=== PATIENT | female | born 2000 | race Caucasian/White ===

== ENCOUNTER → 2022-11-06 08:40 | Outpatient (BNVA) | payer MEDICAID, SELFPAY | PROVIDERS: Family Provider Nurse Practitioner Family; PCP Nurse Practitioner Family; Visit Provider Nurse Practitioner Women's Health | DX: Z34.81 Encounter for supervision of other normal pregnancy, first trimester (principal); Z34.90 Encounter for supervision of normal pregnancy, unspecified, unspecified trimester | CPT/HCPCS: 80307; 81000; 81025; 84315; 84443; 85027; 86592; 86762; 86803; 86850; 86900; 87086; 87340; 87491; 87591; 87806 ==

== ENCOUNTER → 2022-11-18 11:35 | Outpatient (BNVA) | payer MEDICAID, SELFPAY | PROVIDERS: Family Provider Nurse Practitioner Family; PCP Nurse Practitioner Family; Visit Provider Obstetrics & Gynecology | DX: Z34.90 Encounter for supervision of normal pregnancy, unspecified, unspecified trimester (principal); Z34.81 Encounter for supervision of other normal pregnancy, first trimester; F41.9 Anxiety disorder, unspecified; F32.A Depression, unspecified | CPT/HCPCS: 84315; 87491; 87591; 87661; 88175 ==

== ENCOUNTER → 2022-12-19 10:49 | Outpatient (BNVA) | payer MEDICAID, SELFPAY | PROVIDERS: Family Provider Nurse Practitioner Family; PCP Nurse Practitioner Family; Visit Provider Obstetrics & Gynecology | DX: Z34.90 Encounter for supervision of normal pregnancy, unspecified, unspecified trimester (principal); R82.90 Unspecified abnormal findings in urine | CPT/HCPCS: 84315; 87086 ==

== ENCOUNTER → 2023-01-31 08:18 | Outpatient (BNVA) | payer MEDICAID, SELFPAY | PROVIDERS: Family Provider Nurse Practitioner Family; PCP Nurse Practitioner Family; Visit Provider Obstetrics & Gynecology | DX: Z34.90 Encounter for supervision of normal pregnancy, unspecified, unspecified trimester (principal); R82.90 Unspecified abnormal findings in urine | CPT/HCPCS: 82950; 84315; 85025; 87086 ==

== ENCOUNTER → 2023-03-14 10:54 | Outpatient (BNVA) | payer MEDICAID, SELFPAY | PROVIDERS: Family Provider Nurse Practitioner Family; PCP Nurse Practitioner Family; Visit Provider Obstetrics & Gynecology | DX: Z34.90 Encounter for supervision of normal pregnancy, unspecified, unspecified trimester (principal); Z3A.00 Weeks of gestation of pregnancy not specified | CPT/HCPCS: 84315; 85025; 87086 ==

== ENCOUNTER → 2023-03-28 10:15 | Outpatient (BNVA) | payer MEDICAID, SELFPAY | PROVIDERS: Family Provider Nurse Practitioner Family; PCP Nurse Practitioner Family; Visit Provider Obstetrics & Gynecology | DX: Z34.90 Encounter for supervision of normal pregnancy, unspecified, unspecified trimester (principal); Z3A.00 Weeks of gestation of pregnancy not specified | CPT/HCPCS: 87081 ==

== ENCOUNTER → 2023-04-03 07:46 | Outpatient (BNVA) | payer MEDICAID, SELFPAY | PROVIDERS: Family Provider Nurse Practitioner Family; PCP Nurse Practitioner Family; Visit Provider Obstetrics & Gynecology | DX: Z34.90 Encounter for supervision of normal pregnancy, unspecified, unspecified trimester (principal); Z3A.00 Weeks of gestation of pregnancy not specified | CPT/HCPCS: 84315; 87086 ==

== ENCOUNTER 2023-04-18 13:54 | Inpatient (IN) | payer MEDICAID, SELFPAY ==
[2023-04-18] VITALS (9 sets, daily range): BP systolic 110–129; BP diastolic 60–73; PULSE 82–93; TEMP 35.8–36.3; BMI 31.2
--- NOTE | 2023-04-18 13:49 | PM.OPHPUD ---
Labor & Delivery H&P Update Date of Procedure: April 18, 2023 Date H&P Performed: 04/10/23 Admission Diagnosis: iup@ 39 weeks. Induction at term. Related Problem List Diagnoses (1) Supervision of normal :
[2023-04-18 14:11] LABS: Basophils % 0.2 %; Eosinophils % 0.2 %; Hemoglobin 10.6 g/dL (11.5-15.3); Lymphocytes # 1.7 10^3/uL (0.8-4.8); Lymphocytes % 13.6 %; Mean Corpuscular HGB Conc 32.1 g/dL (30.0-36.0); Mean Corpuscular Volume 96.5 fl (81-99); Mean Platelet Volume 10.1 fL (7.4-10.4); Monocytes # 0.6 10^3/uL (0.2-0.9); Monocytes % 5.1 %; Neutrophils # 9.87 10^3/uL (1.8-7.7); Neutrophils % 78.8 %; Nucleated Red Blood Cells % 0 %; Platelet Count 216 10^3/cmm (130-400); Red Blood Count 3.42 10^6/uL (4.1-5.3); Red Cell Distribution Width 13.1 % (12.1-15.1); White Blood Count 12.5 10^3/uL (4.0-10.0)
[2023-04-18] MEDS: miSOPROStol 100 mcg tablet 25 MCG VAGINAL ×2 (14:56→20:06)
[2023-04-19] VITALS (87 sets, daily range): BP systolic 98–154; BP diastolic 52–94; PULSE 74–126; RESP 16–18; TEMP 36.1–37.1; O2SAT 96–100
[2023-04-19] MEDS: miSOPROStol 100 mcg tablet 25 MCG VAGINAL (00:17)
[2023-04-19] MEDS: fentaNYL 50 mcg/mL INJ 2mL IVP ×3 (00:24→07:35)
[2023-04-19] MEDS: lactated ringers 1,000 ML 999 ML IV ×2 (06:51→07:52)
[2023-04-19] MEDS: ROPivacaine syringe 100 MG/50 ML SYRINGE 10 MG EPIDURAL ×3 (08:31→16:17)
--- NOTE | 2023-04-19 08:50 | ANES.PREANE2 ---
Pre-Anesthetic Assessment Height/Weight: Height 1.65 m Weight 85.275 kg Temp Pulse Resp BP Pulse Ox O2 Del Method 96.4 F L 78 18 114/64 100 Room Air 04/18/23 21:40 04/19/23 08:47 04/19/23 07:35 04/19/23 08:47 04/19/23 08:43 04/18/23 11:00 Preop Diagnosis: IUP Labor Epidural Familial anesthetic complications: None Social No alcohol and No tobacco Exam alert, oriented x 3 and clear to auscultation bilaterally Airway Submandibular: within normal limits Cervical ROM: within normal limits Mallampati: Class II Dentition: full History/ROS No significant history except as noted Pulmonary None reported CV/HEM Anemia None reported Hepatic None reported GI Gastroesophageal Reflux Disease Metabolic None reported Musc/skel None reported Neuropsych None reported Anesthetic Plan ASA status: 2 Anesthesia: Regional (specify below) Other: Labor Epidural Medications/Allergies Home Medications Medication Instructions Recorded Confirmed Last Taken Type ciprofloxacin HCl 500 mg tablet 500 mg PO BID #20 tabs 03/31/23 04/10/23 Unknown Rx metronidazole 500 mg tablet 500 mg PO BID #14 tabs 03/31/23 04/10/23 Unknown Rx terconazole 0.4 % vaginal cream 9 g vaginal .qhs 5 days #45 grams 03/31/23 04/10/23 Unknown Rx Allergies Allergy/AdvReac Type Severity Reaction Status Date / Time No Known Allergies Allergy Verified 04/18/23 15:43 Current Medications Generic Name Dose Route Start Last Admin Trade Name Freq PRN Reason Stop Dose Admin Fentanyl 25 - 100 mcg 04/18/23 13:53 04/19/23 07:35 Fentanyl 50 Mcg/Ml Inj 2ml IVP 75 mcg Q1H PRN Administration SEVERE PAIN Lactated Ringer's 1,000 mls @ 999 mls/hr 04/19/23 06:46 04/19/23 07:52 Lactated Ringers IV 999 mls/hr .Q1H1M PRN Administration See label comments Ropivacaine 100 mg in 50 mls @ 10 mls/hr 04/19/23 07:00 04/19/23 08:31 Naropin Syringe EPIDURAL 10 mls/hr .Q5H LARRY Administration PFSH Anesthesia Medical History (Updated 04/18/23 @ 13:49 by Adamaris Collier MD) No pertinent past medical history neghx: htn,dm,thyroid,dvt/pe PCP: None Surgical History (Updated 04/18/23 @ 13:49 by Adamaris Collier MD) No pertinent past surgical history Family History Mother Cervical cancer Denies family history of Colon cancer Ovarian cancer Diabetes Heart disease Hypercholesteremia Breast cancer Hypertension Uterine cancer Thyroid disease Stroke Female Reproductive History : 2 Data Anesthesia 04/18/23 13:45 Short CBC 04/18/23 Range/Units 13:45 WBC 12.5 H (4.0-10.0) 10^3/uL Hgb 10.6 L (11.5-15.3) g/dL Hct 33.0 L (37.0-47.0) % MCV 96.5 (81-99) fl Plt Count 216 (130-400) 10^3/cmm Neut % (Auto) 78.8 % Neut # (Auto) 9.87 H (1.8-7.7) 10^3/uL Blood Bank 04/18/23 13:45 Blood Type A Positive Rho(D) Type Positive Antibody Screen Negative Cardiac Studies: No Data to Display Anesthesia Procedures Epidural Time Out Performed: Yes Consent: from patient, risks and benefits reviewed and patient agrees to proceed Lumbar Level: L3-L4 Epidural position: sitting Epidural procedure: sterile prep of area, 1% lidocaine to numb the area, negative for paresthesia passed, test dose given, 1.5% xylocaine 1:200k epi, placed PCEA, no systemic response, sterile dressing applied, L.U.D. no apparent complications and 0.2% Ropiavacaine @ mls/hr (10) Additional Comments: Epidural placement successful on 2nd attempt FADUMO at 5.5cm catheter threaded to 13cm. test dose given with no response. remaining lidocaine and saline given via epidural. 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
[2023-04-19] MEDS: dextrose 5%-lactated ringers 1,000 ML 125 ML IV ×2 (09:09→16:26)
--- NOTE | 2023-04-19 17:13 | ANES.PROC ---
Anesthesia Procedures Procedure/Date: 04/19/23 Patient complaining of pressure dilated to a 8.5 Bolus offered. 100 mcg Fentanyl given via epidural. 5ml 3% chloroprocaine given 5ml.
[2023-04-19] MEDS: lidocaine 2% INJ 20 mL INJECTION (18:44)
--- NOTE | 2023-04-19 18:51 | PM.DELIVERY ---
Delivery Note: Date of delivery: April 19, 2023 Pre-delivery diagnoses: iup@[id number] Post-delivery diagnoses: same-delivered Procedure: Delivering Physician: génesis Estimated blood loss (mL): 50 Findings: term male in the ANTONIO presentation Pre-Delivery Course: The patient was admitted for induction at term. She received 3 doses of cytotec and began making cervical change on her own. She received an epidural for pain management. She had SROM and then eventually had complete cervical dilation. Delivery: The patient had complete cervical dilation and began to push. The head delivered in the ANTONIO position over an intact perineum under epidural anesthesia. The nose and mouth were bulb suctioned. The shoulders and body delivered atraumatically. The baby was placed onto the mother's abdomen. The cord was clamped and cut. The placenta delivered spontaneously. It was inspected and found to be intact. Inspection of the perineum revealed a small second-degree laceration which was repaired in the usual fashion. Estimated blood loss 50 mL. Apgars on baby were 9 at 1 minute and 9 at 5 minutes. Weight of baby is 8 pounds 5 ounces. Mother and baby were stable post delivery. History History History 2 Term 1 0 Miscarriages/Ectopic 0 Living Children 1 Coding Level of Care Code Acute Code for Chg Fwd Diagnoses
[2023-04-19] MEDS: lanolin oint 7 gm 1 APPLIC TOPICAL (20:49)
[2023-04-19] MEDS: benzocaine-menthol 78 gm Canister 1 SPRAY TOPICAL (20:49)
[2023-04-19] MEDS: ibuprofen 800 mg tablet PO (20:49)
[2023-04-20 00:30] VITALS: BP 109/63; PULSE 82; RESP 16; TEMP 36.7; O2SAT 96
[2023-04-20 02:30] VITALS: BP 109/63; PULSE 86; RESP 16; TEMP 36.8; O2SAT 96
[2023-04-20] MEDS: HYDROcodone-acetaminophen 5-325 mg Tablet PO ×2 (04:22→12:01)
[2023-04-20 04:32] VITALS: BP 112/69; PULSE 82; RESP 16; TEMP 36.7; O2SAT 98
--- NOTE | 2023-04-20 04:32 | PC.NURSE ---
RN in room at 1900 educating patient on education and baby information, patient notified that baby should be fed/ attempted to be fed every 2 hrs. patient reported she wanted to breast feed baby, RN asked if assistance was needed to help baby latch. Patient refused assistance at this time. RN in room at 2100 to help patient settle into room. RN reeducated on baby feeding schedule, mother reported baby had not latched at this time but refused assistance in latching and did not want to try bottles at this time. Rn in room at 2200 after patient requested help in latching baby to feed, latch was successful and baby was feeding. 2200 Rn in room patient called out to report she would like to use formula, that she would like to pump to collect colostrum to give baby as well. RN provided patient with hand pump and syringes to collect and store pumped colostrum along with bottles and nipples to feed baby. Mother was also educated on when to throw away old bottles and get new. 2324 patient reported feeding baby 20mls of formula. 0100 Rn at bedside, patient reports baby has not fed since last feed, Rn reeducated on feeding schedule for baby (q2hrs) and suggested baby be woken up and be fed. 0300 Rn at bedside, patient reports baby has not fed since last feed (2324), Rn reeducated on feeding schedule for baby (q2hrs) and suggested baby be woken up and be fed. 0430 Rn at bedside patient reports just finishing feeding baby 20mls. Rn will continue to educated at this time.
[2023-04-20 06:41] LABS: Hemoglobin 10.3 g/dL (11.5-15.3); Mean Corpuscular HGB Conc 32.2 g/dL (30.0-36.0); Mean Corpuscular Hemoglobin 31.1 pg (28.0-34.0); Mean Corpuscular Volume 96.7 fl (81-99); Platelet Count 212 10^3/cmm (130-400); Red Blood Count 3.31 10^6/uL (4.1-5.3); Red Cell Distribution Width 13.1 % (12.1-15.1)
[2023-04-20] MEDS: docusate sodium 100 mg Capsule PO (09:42)
[2023-04-20] MEDS: prenatal vitamin Capsule 1 CAP PO (09:42)
[2023-04-20] MEDS: ibuprofen 800 mg tablet PO ×2 (09:42→15:58)
[2023-04-20 09:47] VITALS: BP 109/72; PULSE 83; TEMP 36.8
[2023-04-20 16:00] VITALS: BP 112/71; PULSE 81; TEMP 36.9; O2SAT 98
--- NOTE | 2023-04-20 16:23 | PM.DCS ---
Discharge Providers Date of Admission: 04/18/23 13:54 Date of Discharge: April 20, 2023 Attending Provider at Admission: Adamaris Collier MD Attending Provider at Discharge: Adamaris Collier MD Primary Care Provider: Tony Mayorga Diagnoses at Discharge Discharge Diagnosis (1) Supervision of normal : Status: Acute Qualifiers: Normal : other normal Trimester: first trimester Qualified Code(s): Z34.81 - Encounter for supervision of other normal , first trimester Reason for Visit Reason for Visit: IOL Hospital Course Hospital Course The patient was admitted for induction of labor at term. She had spontaneous delivery of a term male . She did well and was ready for discharge on day #1 Physical Exam Narrative: The patient is doing well today. She has 3+ edema in her lower extremities. She has started bottle feeding. Will give lasix IV to help with swelling. Const: COMMON NORMALS: no acute distress, average body habitus, patient oriented x3, no limitations, healthy appearing, alert and well nourished GENERAL APPEARANCE: cooperative, comfortable, well kempt and well developed ORIENTATION/CONSCIOUSNESS: Yes awake, Yes oriented to person, Yes oriented to place and Yes oriented to time Resp: COMMON NORMALS: normal respiratory effort EFFORT & INSPECTION: Yes able to speak in complete sentences GI: COMMON NORMALS: Soft to palpation and non-tender PALPATION: Yes Soft to palpation Extremity: COMMON NORMALS: no calf tenderness NARRATIVE EXTREMITY EXAM: 3+ edema in lower extremities Neuro: COMMON NORMALS: patient oriented x3 SENSORIUM/ORIENTATION: Yes alert, Yes oriented to person, Yes oriented to place and Yes oriented to time Psych: APPEARANCE: Yes well kempt Urinary Catheter Management: Gonsales: Cath Placed During This Visit: yes, but has since been removed by the nurse Reason for Continuing Indwelling Catheter: Decision to DC Catheter Urinary Catheter Date of Insertion: 04/19/23 Urinary Catheter Time of Insertion: 09:03 Date Urinary Catheter Removed: 04/19/23 Time Urinary Catheter Discontinued: 18:29 Discharge Data Studies Completed and Pending Laboratory Results WBC 19.0 10^3/uL (4.0-10.0) H 04/20/23 06:35 RBC 3.31 10^6/uL (4.1-5.3) L 04/20/23 06:35 Hgb 10.3 g/dL (11.5-15.3) L 04/20/23 06:35 Hct 32.0 % (37.0-47.0) L 04/20/23 06:35 MCV 96.7 fl (81-99) 04/20/23 06:35 MCH 31.1 pg (28.0-34.0) 04/20/23 06:35 MCHC 32.2 g/dL (30.0-36.0) 04/20/23 06:35 RDW 13.1 % (12.1-15.1) 04/20/23 06:35 Plt Count 212 10^3/cmm (130-400) 04/20/23 06:35 MPV 10.0 fL (7.4-10.4) 04/20/23 06:35 Neut % (Auto) 78.8 % 04/18/23 13:45 Lymph % (Auto) 13.6 % 04/18/23 13:45 Granite % (Auto) 5.1 % 04/18/23 13:45 Eos % (Auto) 0.2 % 04/18/23 13:45 Baso % (Auto) 0.2 % 04/18/23 13:45 Neut # (Auto) 9.87 10^3/uL (1.8-7.7) H 04/18/23 13:45 Lymph # (Auto) 1.7 10^3/uL (0.8-4.8) 04/18/23 13:45 Granite # (Auto) 0.6 10^3/uL (0.2-0.9) 04/18/23 13:45 Eos # (Auto) 0.0 10^3/uL (0.0-0.8) 04/18/23 13:45 Baso # (Auto) 0.0 10^3/uL (0.0-0.1) 04/18/23 13:45 Nucleated RBC % (auto) 0 % 04/18/23 13:45 Nucleated RBCs # 0.0 /100WBC 04/18/23 13:45 Blood Type A Positive 04/18/23 13:45 Rho(D) Type Positive 04/18/23 13:45 Antibody Screen Negative 04/18/23 13:45 Vitals Last Vital Signs Temp 98.4 F 04/20/23 16:00 Pulse 81 04/20/23 16:00 Resp 16 04/20/23 04:32 BP 112/71 04/20/23 16:00 Pulse Ox 98 04/20/23 16:00 O2 Del Method Room Air 04/20/23 16:00 Discharge Plan Discharge Patient Disposition: Home Condition: Stable Prescriptions: New Lasix 20 mg tablet 20 mg PO DAILY Qty: 7 0RF Discontinued metronidazole 500 mg tablet 500 mg PO BID Qty: 14 0RF terconazole 0.4 % cream 9 g vaginal .qhs 5 Days Qty: 45 0RF ciprofloxacin HCl 500 mg tablet 500 mg PO BID Qty: 20 0RF Discharge Orders: Discharge Order (Routine); Ordered 04/20/23 Ordered By: Adamaris Collier Patient Instructions: Opioid Safety Discharge Attestations Time Spent in Discharge Care*: less than 30 min Quality Metrics Clinical Quality Measures [ No reported AMI, CVA or VTE this stay] Coding Level of Care Code Acute Code for Chg Fwd Diagnoses Supervision of normal Z34.81 Normal : other normal Trimester: first trimester
[2023-04-20] MEDS: FUROsemide 40 mg Tablet PO (18:36)
[2023-04-20 19:50] VITALS: BP 121/67; PULSE 80; RESP 15; TEMP 36.7; O2SAT 98
--- NOTE | 2023-04-22 08:00 | ANE.PACU2 ---
Inpatient post-anesthesia follow up: Airway intact: Yes Vital signs: Temperature 98.1 F Pulse Rate 80 Respiratory Rate 15 Blood Pressure 121/67 Pulse Oximetry 98 Oxygen Delivery Me thod Room Air Oxygen Flow Rate Fraction of Inspir ed Oxygen Hydration adequate: Yes Nausea and vomiting: Yes Pain level: 1 Mental status: Baseline
== END 2023-04-20 20:30 | disposition home or self-care (01) | DRG 807 ==
LOC: OPOB 04-19 08:55 → OBGYN 04-19 08:55
PROVIDERS: Admitting Provider Obstetrics & Gynecology; Family Provider Nurse Practitioner Family; PCP Nurse Practitioner Family; Visit Provider Obstetrics & Gynecology
DX: O70.1 Second degree perineal laceration during delivery (principal); Z37.0 Single live birth; Z3A.39 39 weeks gestation of pregnancy
CPT/HCPCS: 36415; 51702; 59025; 59409; 85025; 85027; 86850; 86900; 96374; 96376; 99211; J2400; J2795; J3010; J7040; J7120; J7121